=== PATIENT | female | born 1995 | race Caucasian/White ===

== ENCOUNTER 2024-04-27 13:23 | Emergency (ER) | payer OTHER ==
[~2024-04-27] VITALS: Ht 165.1 cm; Wt 126.5 kg
[2024-04-27] MEDS ORDERED: LAMO100T80 PO (17:48)
[2024-04-27 19:06] VITALS: BP 130/80; TEMP 97.8; O2SAT 99
[2024-04-27 20:07] LABS: Trichomonas vaginalis (AMP) NOT DETECTED (NEGATIVE)
[2024-04-27 20:31] LABS: GC DNA AMPLIFICATION NEGATIVE (NEGATIVE)
[2024-04-27] MEDS: FLUCONAZOLE 50MG TABLET PO ONE (20:48)
== END 2024-04-27 20:52 | disposition home or self-care (01) ==
LOC: M ED 13:23
DX: N76.0 Acute vaginitis (principal); F17.290 Nicotine dependence, other tobacco product, uncomplicated; Z88.2 Allergy status to sulfonamides